=== PATIENT | male | born 1960 | race Caucasian/White ===

== ENCOUNTER 2025-07-25 20:01 | Observation (INO) ==
--- NOTE | 2025-07-25 20:22 | Emergency Department Note ---
Impression & Plan Nausea & vomiting, Elevated troponin, GERD (gastroesophageal reflux disease) ED Provider Note NAME: FINESSE MIN AGE: 64 SEX: M : 1960 ARRIVES VIA: Walk-In INFORMANT: Patient ED PROVIDER(S): Reza Rhodes MD CHIEF COMPLAINT: Nausea vomiting, referred. PLAN: Disposition: Admit MEDICAL DECISION MAKING: The patient is a pleasant 64-year-old gentleman with a past medical history of acid reflux who presents to the emergency department via walk-in clinic by his partner for evaluation of nausea and vomiting and burping that flared today where he was seen by his PCP office and referred to emergency department for concern for dehydration. Patient reports being seen for acid reflux this past summer in February and was prescribed a medication but reports he had gone to [facility] twice to have it filled but reports that they did not have it. He reports he did not reach out to his doctor to see why the prescription did not go through. Otherwise he reports that he has had no issues since February. He denies any diarrhea or constipation. Denies chest pain, cough, congestion, or fevers. On evaluation the patient is no acute distress, afebrile blood pressure in the 180s/90s and vital signs otherwise stable. Appears clinically dry. Abdomen is nontender. EKG without overt acute ischemia. CXR is suggestive of bronchitis. WBC, H/H and platelets within normal limits. Chemistry without metabolic acidosis. Electrolytes LFTs unremarkable. Initial high sensitivity troponin 23, nonspecific with repeat pending. Lipase is not elevated. CT of the abdomen pelvis was completed with finalized radiology report pending. Patient did report feeling some improvement after IV hydration, IV famotidine and Zofran. He did report some continuation of belching. Repeat HS did rise to 40 and while nonspecific patient does agree with plan for admission for further assessment. Case was discussed with Dr. Minor, [facility] hospitalist who will evaluate the patient for admission. CT of the abdomen pelvis report was finalized and demonstrates fecal and gaseous colonic distention which may suggest sterile coral colitis. Otherwise, stable findings. Further management per admitting team. Triage Nursing notes reviewed and agree them. Prior/external medical records reviewed Vital Signs: reviewed Differential diagnosis: Gastroenteritis, food borne illness, infections, appendicitis, diverticulitis, inflammatory bowel disease, obstruction, GI bleed, biliary pathology, volvulus, as well as other pathologies. ER treatment provided: See below. Diagnostics interpreted by me: ECG: Sinus rhythm with PACs, 73 bpm, incomplete right bundle branch block, no overt ST elevation or depression, QTc 434, QRS 96. Cardiac Monitoring: An order for continuous cardiac monitoring was placed and demonstrated sinus rhythm, PACs, 73 bpm. Laboratory studies: See below Imaging studies: See below Consultation(s): Case was discussed with Dr. Minor, [facility] hospitalist who will evaluate the patient for admission. HPI: Per MDM. ROS: See above HPI for pertinent positives & negatives. A total of 10 systems reviewed and were otherwise negative. VITALS:See Below PHYSICAL EXAMINATION: GENERAL: Awake, alert, in no distress HENT: Normocephalic, atraumatic. Oropharynx with dry mucous membranes and otherwise unremarkable. EYES: Normal conjunctiva. Sclera non-icteric. NECK: Supple. No nuchal rigidity. FROM. No JVD. RESPIRATORY: Clear to auscultation. CARDIAC: Regular rate, normal rhythm. Extremities warm and well perfused. Pulses equal. ABDOMEN: Soft, non-distended. No tenderness to palpation. No rebound or guarding. No masses. MUSCULOSKELETAL: Chest examination reveals no tenderness. The back is symmetrical on inspection without obvious abnormality. There is no CVA tenderness to palpation. No joint edema. LOWER EXTREMITIES: Calves are equal size bilaterally and non-tender. No edema. No discoloration. NEURO: Normal sensorium. No sensory or motor deficits noted. SKIN: No rash or jaundice noted. Reza Rhodes MD Past Med/Surg History Problem List (Updated 07/26/25 @ 14:32 by Reza Rhodes MD) Asymptomatic hypertensive urgency GERD (gastroesophageal reflux disease) (Acute) Elevated troponin (Acute) Nausea & vomiting (Acute) Abdominal pain (Acute) Vomiting and diarrhea (Acute) Social History Smoking Status: Never smoker Hx Alcohol Use: Yes Alcohol type: wine Hx Substance Use: Yes Preferred Language: Georgian 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 Ability: Effective [employer] Required: No Beliefs That Will Affect Care: None Current Living Situation: Alone Other Information That Helps Us Care for You: No Feels Safe at Home: Yes Safety Concerns: Feels Safe At This Time Assistive Devices: None Allergies Allergies Allergy/AdvReac Type Severity Reaction Status Date / Time No Known Allergies Allergy Verified 07/25/25 21:48 Home Meds Home Medications Medication Instructions Recorded Confirmed No Known Home Medications 07/25/25 07/25/25 Results & Data (ED) Vital Signs Vital Signs - 24 hr 07/25/25 20:03 07/25/25 20:45 07/25/25 20:45 Temperature 36.8 C Temperature Source Temporal Artery Scan Pulse Rate 86 88 105 H Pulse Rate [Right Finger] Pulse Rate from SpO2 Sensor Pulse Rhythm [Right Finger] Pulse Strength [Right Finger] Respiratory Rate 18 19 Respiratory Effort / Characteristics Non-Labored Spontaneous Respiratory Depth Normal Blood Pressure 180/97 H 178/82 H Blood Pressure [Left Arm] Blood Pressure Mean 124 114 Blood Pressure Mean [Left Arm] Blood Pressure Position [Left Arm] Pulse Oximetry 94 98 Oxygen Delivery Method Room Air Room Air Sepsis Recent Fever Within 48 Hours No Sepsis New/Unexplained Change in Mental Status No Sepsis Action Taken by Nursing No Action Required 07/25/25 21:00 07/25/25 21:30 07/25/25 22:21 Temperature Temperature Source Pulse Rate 82 89 83 Pulse Rate [Right Finger] Pulse Rate from SpO2 Sensor 84 90 85 Pulse Rhythm [Right Finger] Pulse Strength [Right Finger] Respiratory Rate 23 24 22 Respiratory Effort / Characteristics Respiratory Depth Blood Pressure 151/73 H 151/75 H 156/84 H Blood Pressure [Left Arm] Blood Pressure Mean 99 100 108 Blood Pressure Mean [Left Arm] Blood Pressure Position [Left Arm] Pulse Oximetry 90 91 95 Oxygen Delivery Method Room Air Room Air Room Air Sepsis Recent Fever Within 48 Hours Sepsis New/Unexplained Change in Mental Status Sepsis Action Taken by Nursing 07/25/25 22:30 07/25/25 23:00 07/26/25 00:00 Temperature Temperature Source Pulse Rate 82 85 Pulse Rate [Right Finger] 78 Pulse Rate from SpO2 Sensor 84 82 Pulse Rhythm [Right Finger] Regular Pulse Strength [Right Finger] Normal Respiratory Rate 12 24 16 Respiratory Effort / Characteristics Non-Labored Spontaneous Respiratory Depth Normal Blood Pressure 166/92 H 167/95 H Blood Pressure [Left Arm] 158/74 H Blood Pressure Mean 116 119 Blood Pressure Mean [Left Arm] 102 Blood Pressure Position [Left Arm] Lying Pulse Oximetry 96 97 98 Oxygen Delivery Method Room Air Room Air Sepsis Recent Fever Within 48 Hours Sepsis New/Unexplained Change in Mental Status Sepsis Action Taken by Nursing 07/26/25 01:19 Temperature Temperature Source Pulse Rate 83 Pulse Rate [Right Finger] Pulse Rate from SpO2 Sensor Pulse Rhythm [Right Finger] Pulse Strength [Right Finger] Respiratory Rate Respiratory Effort / Characteristics Respiratory Depth Blood Pressure Blood Pressure [Left Arm] Blood Pressure Mean Blood Pressure Mean [Left Arm] Blood Pressure Position [Left Arm] Pulse Oximetry Oxygen Delivery Method Sepsis Recent Fever Within 48 Hours Sepsis New/Unexplained Change in Mental Status Sepsis Action Taken by Nursing Laboratory Data Attestation: I reviewed the patient's lab results. 07/26/25 04:23 07/26/25 04:23 Lab Results 07/25/25 07/25/25 07/25/25 Range/Units 20:35 21:16 22:11 WBC 8.81 (4.8-10.8) K/ul RBC 5.06 (4.70-6.10) M/uL Hgb 15.8 (14.0-18.0) g/dL Hct 43.5 (42.0-52.0) % MCV 86.0 (80.0-100.0) fL MCH 31.2 (25.0-34.0) pg MCHC 36.3 H (32.0-36.0) g/dL RDW Std Deviation 39.5 (36.4-46.3) fL RDW Coeff of Beth 12.7 (11.5-14.5) % Plt Count 263 (130-400) K/uL MPV 9.6 (9.4-12.4) fL Immature Gran % (Auto) 0.2 % Neut % (Auto) 89.6 % Lymph % (Auto) 7.6 % Grady % (Auto) 2.0 % Eos % (Auto) 0.3 % Baso % (Auto) 0.3 % Neut # (Auto) 7.88 H (1.40-6.50) K/uL Lymph # (Auto) 0.67 L (1.20-3.40) K/uL Grady # (Auto) 0.18 (0.11-0.59) K/uL Eos # (Auto) 0.03 (0.00-0.50) K/uL Baso # (Auto) 0.03 (0.00-0.20) K/uL Immature Gran # (Auto) 0.02 (0.01-0.20) K/uL PT Cancelled 11.2 INR Cancelled 1.1 Sodium 139 (136-145) mmol/L Potassium 3.7 (3.5-5.1) mmol/L Chloride 105 (98-107) mmol/L Carbon Dioxide 22 (21-32) mmol/L Anion Gap 12 H (3-11) BUN 15 (6-23) mg/dl Creatinine 0.89 (0.6-1.4) mg/dl Est Cr Clr Drug Dosing 83.9 ml/min eGFR 95.70 BUN/Creatinine Ratio 16.9 (10-20) Glucose 155 H (70-99(Fasting)) mg/dl Calcium 9.4 (8.6-10.3) mg/dl Total Bilirubin 0.9 (0.2-1.0) mg/dl AST 19 (13-39) U/L ALT 10 (7-52) U/L Alkaline Phosphatase 86 (34-104) U/L Troponin I High Sens 23.3 H 40.3 H D (0-20) pg/ml Total Protein 7.7 (6.0-8.3) gm/dl Albumin 4.4 (3.4-5.0) gm/dl Globulin 3.3 (2.5-4.0) gm/dl Albumin/Globulin Ratio 1.3 (0.9-2) Lipase 7 L (11-82) U/L Administered Medications Docusate Sodium (Docusate Sodium 100 Mg Cap) 100 mg PO BID [facility] Stop: 08/25/25 08:59 Last Admin: 07/26/25 10:28 Dose: Not Given Documented By: CF Enoxaparin Sodium (Enoxaparin Inj 40 Mg/0.4 Ml Syr) 40 mg SQ [facility] [place] Stop: 08/25/25 08:59 Last Admin: 07/26/25 10:00 Dose: 40 mg Documented By: CF Lactated Ringer's (Lr) 1,000 mls @ 60 mls/hr IV .[id number] ONE Stop: 07/26/25 18:36 Last Admin: 07/26/25 04:19 Dose: 60 mls/hr Documented By: SJM Losartan Potassium (Losartan Potassium 25 Mg Tab) 25 mg PO QAM [facility] Stop: 08/25/25 01:54 Last Admin: 07/26/25 02:59 Dose: 25 mg Documented By: [facility] Polyethylene Glycol (Polyethylene (Miralax) 17 Gm Pack) 17 gm PO DAILY JOSE ELIAS Stop: 08/25/25 08:59 Last Admin: 07/26/25 10:28 Dose: Not Given Documented By: CF Discontinued Medications Sodium Chloride (Nss) 1,000 mls @ 999 mls/hr IV .Q1H1M ONE Stop: 07/25/25 21:20 Last Infusion: 07/25/25 21:43 Dose: Infused Documented By: Admin: 07/25/25 20:39 Dose: 999 mls/hr Documented By: JOSTIN Famotidine (Pepcid 20mg Iv Push) 20 mg in 5 mls @ 2.5 mls/min IV NOW STA Stop: 07/25/25 20:45 Last Admin: 07/25/25 21:06 Dose: 2.5 mls/min Documented By: JOSTIN Ioversol (Optiray 320 100ml) 94 ml IV ONCE ONE Stop: 07/25/25 21:35 Last Admin: 07/26/25 05:25 Dose: Not Given Documented By: KEL Ondansetron HCl (Ondansetron Inj 2 Mg/Ml 2 Ml Vial) 4 mg IV NOW STA Stop: 07/25/25 20:45 Last Admin: 07/25/25 21:06 Dose: 4 mg Documented By: JOSTIN Imaging Data Radiologist's Impression: Abdomen/Pelvis CT 07/25/25 20:44 EXAM: CT abd pelvis IV con only CLINICAL HISTORY: abdominal pain, n/v TECHNIQUE: Contiguous axial images were obtained from the level of the diaphragm to the pubic symphysis with intravenous contrast. Coronal and sagittal reconstructions were likewise performed and indicated to increase the sensitivity for detecting clinically relevant pathology. If IV contrast material had not been administered, the likelihood of detecting abnormalities relevant to the patient's condition would have been substantially decreased. CT scan was performed according to ALARA (as low as reasonably achievable). 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 FINDINGS: The visualized lung bases are clear. The liver is normal in size and attenuation. No focal liver lesions are seen. There is no intra or extrahepatic biliary ductal dilatation. Hepatic vasculature is patent. The gallbladder is present. The spleen, pancreas, and adrenal glands are unremarkable. The kidneys are normal in size and attenuation. There is no hydronephrosis or perinephric fat stranding. No renal calculi or renal masses are identified. The ureters are normal in caliber and no ureteral calculi are seen. The bladder is normal in contour. Enlarged prostate. No evidence of bowel obstruction is identified. No imaging evidence of appendicitis. Abdominal and pelvic vasculature is patent. No adenopathy or fluid collections are seen. No aggressive appearing osseous lesions are identified. Colonic fecal and gaseous distension with mild wall thickening of rectum. Could be suggestive of stercoral colitis. Advised clinical correlation. New finding. Multiple small uncomplicated sigmoid colonic diverticulosis Diffuse atherosclerotic calcification is noted involving aorta iliac arteries. IMPRESSION: Enlarged prostate.-stable. Colonic fecal and gaseous distension with mild wall thickening of rectum. Could be suggestive of stercoral colitis. Advised clinical correlation. New finding. Multiple small uncomplicated sigmoid colonic diverticulosis-stable. Diffuse atherosclerotic calcification is noted involving aorta iliac arteries.s-stable. Electronically signed by Leland Hernandes 07-26-2025 03:27 AM Discharge Plan Visit Data Chief Complaint: Illness Stated Complaint: ACID REFLUX, DEHYDRATION ED Provider: Reza Rhodes Discharge Problem: Nausea & vomiting, Elevated troponin, GERD (gastroesophageal reflux disease) Patient Disposition: Admitted As Inpatient Condition: Fair Discharge Instructions Interventions: ED Discharge Assessment Last Done: 07/26/25 03:41 Discharge Problem: Nausea & vomiting Qualifiers: Vomiting type: unspecified Qualified Code(s): R11.2 - Nausea with vomiting, unspecified GERD (gastroesophageal reflux disease) Qualifiers: Esophagitis presence: esophagitis presence not specified Qualified Code(s): K 21.9 - Gastro-esophageal reflux disease without esophagitis
[2025-07-25] MEDS: SODIUM CHLORIDE 0.9% 1,000 ML IV ONE (20:39)
[2025-07-25 20:44] LABS: Hematocrit (blood only) 43.5 % (42.0-52.0); Hemoglobin 15.8 g/dL (14.0-18.0); Immature Granulocytes # (auto) 0.02 K/uL (0.01-0.20); Immature Granulocytes % (auto) 0.2 %; Mean Corpuscular Hemoglobin 31.2 pg (25.0-34.0); Mean Corpuscular Volume 86.0 fL (80.0-100.0); Platelet Count 263 K/uL (130-400); RDW Standard Deviation 39.5 fL (36.4-46.3); Red Blood Count 5.06 M/uL (4.70-6.10); White Blood Count 8.81 K/ul (4.8-10.8)
[2025-07-25 21:04] LABS: Alanine Aminotransferase 10.0 U/L (7-52); Albumin Globulin Ratio 1.3 (0.9-2); Albumin Level 4.4 gm/dl (3.4-5.0); Alkaline Phosphatase 86.0 U/L (34-104); Anion Gap 12.0 (3-11); Bilirubin,Total 0.9 mg/dl (0.2-1.0); Blood Urea Nitrogen 15.0 mg/dl (6-23); Calcium 9.4 mg/dl (8.6-10.3); Carbon Dioxide 22.0 mmol/L (21-32); Chloride 105.0 mmol/L (98-107); Creatinine Clr Calc Pharmacy 83.9 ml/min; Globulin 3.3 gm/dl (2.5-4.0); Glucose 155.0 mg/dl (70-99(Fasting)); Lipase 7.0 U/L (11-82); Potassium 3.7 mmol/L (3.5-5.1); Sodium 139.0 mmol/L (136-145); Total Protein 7.7 gm/dl (6.0-8.3)
[2025-07-25] MEDS: ONDANSETRON INJ 2 MG/ML 2 ML VIAL IV STA (21:06)
[2025-07-25] MEDS: FAMOTIDINE 20MG IV PUSH 20 MG/5 ML SYR IV STA (21:06)
[2025-07-25 22:10] LABS: INR 1.1 (0.9-1.1); Prothrombin Time 11.2 Seconds (9.0-12.0)
--- NOTE | 2025-07-25 22:55 | XRay Report ---
Exam(s): XR CXR 1 VIEW EXAM: XR Chest, 1 View CLINICAL HISTORY: Reason for exam: Chest pain, nonspecific. TECHNIQUE: Frontal view of the chest. COMPARISON: Prior chest x-ray from January 25, 2016. FINDINGS: Lungs: Mild to moderate peribronchial thickening of the central bronchi. Increased insertional opacities in the lower lobes. No consolidation. Pleural space: Unremarkable. No pneumothorax. Heart: Unremarkable. No cardiomegaly. Mediastinum: Unremarkable. Normal mediastinal contour. Bones/joints: Unremarkable. No acute fracture. IMPRESSION: Bronchitis, which may be of infectious or inflammatory etiologies. No consolidation or pleural effusion. Electronically signed by: Franca Ku MD 07/25/25 22:54 PM
--- NOTE | 2025-07-26 01:51 | History & Physical Report ---
Date of Service July 26, 2025 Assessment & Plan (1) Asymptomatic hypertensive urgency: Plan: Assessment and plan below following discussion of case with ED provider and reviewing patient history/pertinent normal/abnormal diagnostic test results. Hypertensive urgency Secondary to stomach upset/foodborne illness Patient nontoxic. Patient currently comfortable Troponin elevation secondary to above GERD, intermittent PPI use at home. Hyperglycemia rule out DM OBS Admit to PCU Initiate losartan for BP control Follow troponin TTE if with progression Check hemoglobin A1c DVT prophylaxis. Lovenox subcu Full code Text document was generated using [employer] voice recognition software. It may contain grammatical or spelling errors. Kindly contact undersigned for clarification of any documentation item in question. History of Present Illness Chief Complaint: Nausea, vomiting, abdominal pain inside Primary Care Provider: Torin Hubbard PA-C History obtained from patient and records. Medical history significant for GERD. One day history of achy abdominal pain "inside" followed by nausea, emesis, burping. Good bowel movement. Denies constipation/diarrhea. Denies chest pain, SOB, cough symptoms. No unusual weight loss. Denies headache symptoms. Patient attributes symptoms to consumption of a lemon pastry and scrapple yesterday morning. Patient thinks he may have had a similar episode last year which led to confinement at [facility]. Normal cardiac catheterization during confinements as per patient. Patient currently comfortable. SBP 180s upon arrival at the ER. 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 Allergies Allergy/AdvReac Type Severity Reaction Status Date / Time No Known Allergies Allergy Verified 07/25/25 21:48 Home Medications Medication Instructions Recorded Confirmed Type No Known Home Medications 07/25/25 07/25/25 History Past Med/Surg History Problem List (Updated 07/26/25 @ 08:54 by Jose Minor MD) Asymptomatic hypertensive urgency GERD (gastroesophageal reflux disease) (Acute) Elevated troponin (Acute) Nausea & vomiting (Acute) Abdominal pain (Acute) Vomiting and diarrhea (Acute) Social History Smoking Status: Never smoker Hx Alcohol Use: Yes Alcohol type: wine Hx Substance Use: Yes Preferred Language: Fijian 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 Ability: Effective 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 Beliefs That Will Affect Care: None Current Living Situation: Alone Other Information That Helps Us Care for You: No Feels Safe at Home: Yes Safety Concerns: Feels Safe At This Time Assistive Devices: None Review of Systems Review of Systems: As per HPI, all other systems reviewed and negative Physical Exam Physical Exam: GENERAL: Comfortable, pleasant, slightly anxious, no respiratory distress SKIN: Normal color, warm HEENT: [place] palpebral conjunctivae, no ptosis, dry buccal mucosa NECK : Supple, no tenderness CHEST : CTA, no tenderness HEART : RRR, no obvious murmurs ABDOMEN: Some distention, nontender EXTREMITIES : No LE swelling/tenderness, palpable pulses, no other conspicuous deformities noted NEUROLOGIC : Coherent, no facial asymmetry, no other gross focality Results & Data Results & Data Vital Signs (Past 12 Hours) Vital Signs Temp Pulse Resp BP Pulse Ox O2 Del Method 07/26/25 01:19 83 07/25/25 23:00 85 24 167/95 H 97 Room Air 07/25/25 22:30 82 12 166/92 H 96 Room Air 07/25/25 22:21 83 22 156/84 H 95 Room Air 07/25/25 21:30 89 24 151/75 H 91 Room Air 07/25/25 21:00 82 23 151/73 H 90 Room Air 07/25/25 20:45 105 H 19 178/82 H 98 Room Air 07/25/25 20:45 88 07/25/25 20:03 36.8 C 86 18 180/97 H 94 Room Air Laboratory Results Laboratory Results WBC 8.81 K/ul (4.8-10.8) 07/25/25 20:35 RBC 5.06 M/uL (4.70-6.10) 07/25/25 20:35 Hgb 15.8 g/dL (14.0-18.0) 07/25/25 20:35 Hct 43.5 % (42.0-52.0) 07/25/25 20:35 MCV 86.0 fL (80.0-100.0) 07/25/25 20:35 MCH 31.2 pg (25.0-34.0) 07/25/25 20:35 MCHC 36.3 g/dL (32.0-36.0) H 07/25/25 20:35 RDW Std Deviation 39.5 fL (36.4-46.3) 07/25/25 20:35 RDW Coeff of Beth 12.7 % (11.5-14.5) 07/25/25 20:35 Plt Count 263 K/uL (130-400) 07/25/25 20:35 MPV 9.6 fL (9.4-12.4) 07/25/25 20:35 Immature Gran % (Auto) 0.2 % 07/25/25 20:35 Neut % (Auto) 89.6 % 07/25/25 20:35 Lymph % (Auto) 7.6 % 07/25/25 20:35 Ada % (Auto) 2.0 % 07/25/25 20:35 Eos % (Auto) 0.3 % 07/25/25 20:35 Baso % (Auto) 0.3 % 07/25/25 20:35 Neut # (Auto) 7.88 K/uL (1.40-6.50) H 07/25/25 20:35 Lymph # (Auto) 0.67 K/uL (1.20-3.40) L 07/25/25 20:35 Ada # (Auto) 0.18 K/uL (0.11-0.59) 07/25/25 20:35 Eos # (Auto) 0.03 K/uL (0.00-0.50) 07/25/25 20:35 Baso # (Auto) 0.03 K/uL (0.00-0.20) 07/25/25 20:35 Immature Gran # (Auto) 0.02 K/uL (0.01-0.20) 07/25/25 20:35 PT 11.2 Seconds (9.0-12.0) 07/25/25 21:16 INR 1.1 (0.9-1.1) 07/25/25 21:16 Sodium 139 mmol/L (136-145) 07/25/25 20:35 Potassium 3.7 mmol/L (3.5-5.1) 07/25/25 20:35 Chloride 105 mmol/L (98-107) 07/25/25 20:35 Carbon Dioxide 22 mmol/L (21-32) 07/25/25 20:35 Anion Gap 12 (3-11) H 07/25/25 20:35 BUN 15 mg/dl (6-23) 07/25/25 20:35 Creatinine 0.89 mg/dl (0.6-1.4) 07/25/25 20:35 Est Cr Clr Drug Dosing 83.9 ml/min 07/25/25 20:35 eGFR 95.70 07/25/25 20:35 BUN/Creatinine Ratio 16.9 (10-20) 07/25/25 20:35 Glucose 155 mg/dl (70-99(Fasting)) H 07/25/25 20:35 Calcium 9.4 mg/dl (8.6-10.3) 07/25/25 20:35 Total Bilirubin 0.9 mg/dl (0.2-1.0) 07/25/25 20:35 AST 19 U/L (13-39) 07/25/25 20:35 ALT 10 U/L (7-52) 07/25/25 20:35 Alkaline Phosphatase 86 U/L (34-104) 07/25/25 20:35 Troponin I High Sens 40.3 pg/ml (0-20) H D 07/25/25 22:11 Total Protein 7.7 gm/dl (6.0-8.3) 07/25/25 20:35 Albumin 4.4 gm/dl (3.4-5.0) 07/25/25 20:35 Globulin 3.3 gm/dl (2.5-4.0) 07/25/25 20:35 Albumin/Globulin Ratio 1.3 (0.9-2) 07/25/25 20:35 Lipase 7 U/L (11-82) L 07/25/25 20:35 Impressions Chest X-Ray 07/25/25 20:20 Exam(s): XR CXR 1 VIEW EXAM: XR Chest, 1 View CLINICAL HISTORY: Reason for exam: Chest pain, nonspecific. TECHNIQUE: Frontal view of the chest. COMPARISON: Prior chest x-ray from January 25, 2016. FINDINGS: Lungs: Mild to moderate peribronchial thickening of the central bronchi. Increased insertional opacities in the lower lobes. No consolidation. Pleural space: Unremarkable. No pneumothorax. Heart: Unremarkable. No cardiomegaly. Mediastinum: Unremarkable. Normal mediastinal contour. Bones/joints: Unremarkable. No acute fracture. IMPRESSION: Bronchitis, which may be of infectious or inflammatory etiologies. No consolidation or pleural effusion. Electronically signed by: Franca Ku MD 07/25/25 22:[address] abdomen pelvis: Enlarged prostate.-stable. Colonic fecal and gaseous distension with mild wall thickening of rectum. Could be suggestive of stercoral colitis. Advised clinical correlation. New finding. Multiple small uncomplicated sigmoid colonic diverticulosis-stable. Diffuse atherosclerotic calcification is noted involving aorta iliac arteries.s-stable. Diagnostic Findings EKG as per my interpretation :Rate 75, NSR, normal axis, incomplete RBBB, no ischemia
[2025-07-26] MEDS ORDERED: PROMETHAZINE 6.25 MG/50.25 ML BAG IV PRN (01:57)
[2025-07-26] MEDS ORDERED: ACETAMINOPHEN 325 MG TAB PO PRN (01:57)
[2025-07-26] MEDS: LOSARTAN POTASSIUM 25 MG TAB PO SCH (02:59)
--- NOTE | 2025-07-26 03:27 | CT Scan Report ---
EXAM: CT abd pelvis IV con only CLINICAL HISTORY: abdominal pain, n/v TECHNIQUE: Contiguous axial images were obtained from the level of the diaphragm to the pubic symphysis with intravenous contrast. Coronal and sagittal reconstructions were likewise performed and indicated to increase the sensitivity for detecting clinically relevant pathology. If IV contrast material had not been administered, the likelihood of detecting abnormalities relevant to the patient's condition would have been substantially decreased. CT scan was performed according to ALARA (as low as reasonably achievable). 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 The liver is normal in size and attenuation. No focal liver lesions are seen. There is no intra or extrahepatic biliary ductal dilatation. Hepatic vasculature is patent. The gallbladder is present. The spleen, pancreas, and adrenal glands are unremarkable. The kidneys are normal in size and attenuation. There is no hydronephrosis or perinephric fat stranding. No renal calculi or renal masses are identified. The ureters are normal in caliber and no ureteral calculi are seen. The bladder is normal in contour. Enlarged prostate. No evidence of bowel obstruction is identified. No imaging evidence of appendicitis. Abdominal and pelvic vasculature is patent. No adenopathy or fluid collections are seen. No aggressive appearing osseous lesions are identified. Colonic fecal and gaseous distension with mild wall thickening of rectum. Could be suggestive of stercoral colitis. Advised clinical correlation. New finding. Multiple small uncomplicated sigmoid colonic diverticulosis Diffuse atherosclerotic calcification is noted involving aorta iliac arteries. IMPRESSION: Enlarged prostate.-stable. Colonic fecal and gaseous distension with mild wall thickening of rectum. Could be suggestive of stercoral colitis. Advised clinical correlation. New finding. Multiple small uncomplicated sigmoid colonic diverticulosis-stable. Diffuse atherosclerotic calcification is noted involving aorta iliac arteries.s-stable. Electronically signed by Leland Hernandes 07-26-2025 03:27 AM
[2025-07-26] MEDS: LACTATED RINGER'S 1,000 ML IV ONE (04:19)
[2025-07-26 04:35] LABS: Hematocrit (blood only) 37.9 % (42.0-52.0); Hemoglobin 13.6 g/dL (14.0-18.0); Immature Granulocytes # (auto) 0.04 K/uL (0.01-0.20); Immature Granulocytes % (auto) 0.5 %; Mean Corpuscular Hemoglobin 31.1 pg (25.0-34.0); Mean Corpuscular Volume 86.7 fL (80.0-100.0); Platelet Count 229 K/uL (130-400); RDW Standard Deviation 40.8 fL (36.4-46.3); Red Blood Count 4.37 M/uL (4.70-6.10); White Blood Count 8.45 K/ul (4.8-10.8)
[2025-07-26] MEDS ORDERED: PNEUMOCOCCAL VACCINE (PCV20) 20-VAL CONJ-DIP CRM/PF 0.5 ML SYR IM ONE (04:35)
[2025-07-26] MEDS ORDERED: INFLUENZA VACC TS2025-26(6m+)/PF (IIV3) 0.5mL Syr IM ONE (04:35)
[2025-07-26 04:52] LABS: Anion Gap 10.0 (3-11); Blood Urea Nitrogen 13.0 mg/dl (6-23); Calcium 8.7 mg/dl (8.6-10.3); Carbon Dioxide 22.0 mmol/L (21-32); Chloride 106.0 mmol/L (98-107); Creatinine Clr Calc Pharmacy 94.5 ml/min; Glucose 125.0 mg/dl (70-99(Fasting)); Potassium 3.6 mmol/L (3.5-5.1); Sodium 138.0 mmol/L (136-145)
[2025-07-26 05:11] LABS: Partial Thromboplastin Time 25 Seconds (21-31)
[2025-07-26] MEDS: OPTIRAY 320 100ml IV ONE (05:25)
[2025-07-26 07:21] LABS: Hemoglobin A1C 5.7 % (4.5-5.6)
[2025-07-26 07:35] LABS: Chlamydia pneumoniae PCR Not Detected (NotDetected); Coronavirus 229E PCR Not Detected (NotDetected); Coronavirus CoV-2 (COVID19)PCR Not Detected (NotDetected); Coronavirus HKU1 PCR Not Detected (NotDetected); Coronavirus NL63 PCR Not Detected (NotDetected); Coronavirus OC43PCR Not Detected (NotDetected); Human Metapneumovirus PCR Not Detected (NotDetected); Parainfluenza Virus 1 PCR Not Detected (NotDetected); Parainfluenza Virus 2 PCR Not Detected (NotDetected); Parainfluenza Virus 3 PCR Not Detected (NotDetected); Parainfluenza Virus 4 PCR Not Detected (NotDetected); Respiratory Syncytial VirusPCR Not Detected (NotDetected); Rhinovirus/Enterovirus PCR Not Detected (NotDetected)
[2025-07-26] MEDS: ENOXAPARIN INJ 40 MG/0.4 ML SYR SQ SCH (10:00)
--- NOTE | 2025-07-26 10:03 | XCELERA ---
[id number]
[2025-07-26] MEDS: DOCUSATE SODIUM 100 MG CAP PO SCH (10:28)
[2025-07-26] MEDS: POLYETHYLENE (MIRALAX) 17 GM PACK PO SCH (10:28)
[2025-07-26 11:20] LABS: Appearance Urine Clear (Clear); Bacteria Urine Automated None Seen (None Seen); Cast Urine Automated 0-2 /lpf (0-2); Epithelial Cell Urine Auto 0-2 /hpf (0-2); Glucose Urine UA Negative (Negative); WBC Urine Automated 0-5 /hpf (0-5)
--- NOTE | 2025-07-26 11:51 | Electrocardiogram Report ---
Test Reason : Blood Pressure : */* mmHG Vent. Rate : 73 BPM Atrial Rate : 73 BPM P-R Int : 148 ms QRS Dur : 96 ms QT Int : 394 ms P-R-T Axes : 78 19 54 degrees QTcB Int : 434 ms Sinus rhythm with Premature atrial complexes Incomplete right bundle branch block Borderline ECG No previous ECGs available Confirmed by Kemal Fuller ([id number]) on 07/26/2025 11:51:27 AM Referred By: REFERRED SELF Confirmed By: Kemal Fuller
--- NOTE | 2025-07-26 13:13 | 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 Note ---
Date of Service: July 26, 2025 Patient was seen and examined at bedside. 64-year-old male with PMH of GERD presents with complaint of achy abdominal pain x 1 day followed by nausea, emesis, burping. Patient reports moving bowels okay, denies chest pain or shortness of breath or sore throat or cough or fever. Patient attributes the symptoms to consumption of a lemon pastry in the scrapple the morning prior to arrival. Patient thinks he may have had a similar episode last year which led to confinement at [facility]. Normal cardiac catheterization during confinements as per patient. He is being managed for the following: Asymptomatic hypertensive urgency Likely demand ischemia: ISO acute distress Blood pressure noted at 180/97 at presentation. Likely secondary to stomach upset/foodborne illness Troponin peaked at 119 and then down trended. Patient denies any chest pain or shortness of breath or chest heaviness. EKG with no acute ST or T changes. Echo with EF of 65 to 70%, no regional wall motion abnormalities. Left ventricular systolic function normal. Borderline concentric LVH. Continue to monitor over telemetry overnight. Repeat EKG in AM. Get lipid profile in AM. Losartan 25 mg added, titrate blood pressure medications as appropriate. Stomach upset likely secondary to foodborne illness versus GERD exacerbation: Patient nontoxic, reports improvement in his burping/regurgitation/reflux. Has intermittent PPI use at home. Will continue with Protonix daily, patient will benefit from GI evaluation as an outpatient. Prediabetes: A1c of 5.7, patient made aware, repeat A1c in 3 months. Encouraged lifestyle modification and healthy diet. DVT prophylaxis. Lovenox subcu Full code Text document was generated using 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 voice recognition software. It may contain grammatical or spelling errors. Kindly contact undersigned for clarification of any documentation item in question. For detailed information on the patient, report to today's H&P note.
--- NOTE | 2025-07-26 22:43 | 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 Note ---
Date of Service: July 26, 2025 Patient noted to be bradycardic, heart rate 40s as per RN. SBP 160s. 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
[2025-07-26] MEDS ORDERED: ATROPINE SULFATE 0.1 MG/ML 10ML SYR IV PRN (22:44)
[2025-07-26] MEDS: LOSARTAN POTASSIUM 25 MG TAB PO STA (23:01)
[2025-07-26 23:47] LABS: Magnesium 1.9 mg/dl (1.7-2.4)
[2025-07-27 00:02] LABS: Thyroid Stimulating Hormone 1.13 uIu/ml (0.300-4.500)
[2025-07-27 00:17] LABS: Lyme Screen Rflx Confirmation Positive (Negative)
[2025-07-27 00:59] LABS: Lyme Ab IgG 2nd Tier Confirm Positive (Negative); Lyme Ab IgM 2nd Tier Confirm Positive (Negative)
[2025-07-27] MEDS ORDERED: cefTRIAXone SODIUM 2,000 MG/50 ML BAG IV SCH (01:30)
[2025-07-27] MEDS: DOXYCYCLINE HYCLATE 100 MG in DEXTROSE 5% MINI-B 100 ML IV STA (01:35)
[2025-07-27 08:31] LABS: Cholesterol 151.0 mg/dl (0-200); HDL Cholesterol 37.0 mg/dl; Hematocrit (blood only) 41.4 % (42.0-52.0); Hemoglobin 14.4 g/dL (14.0-18.0); Mean Corpuscular Hemoglobin 30.6 pg (25.0-34.0); Mean Corpuscular Volume 88.1 fL (80.0-100.0); Platelet Count 224 K/uL (130-400); RDW Standard Deviation 42.0 fL (36.4-46.3); Red Blood Count 4.70 M/uL (4.70-6.10); Triglycerides 111.0 mg/dl (0-150); White Blood Count 7.30 K/ul (4.8-10.8)
[2025-07-27 08:39] LABS: Albumin Globulin Ratio 1.7 (0.9-2); Albumin Level 3.9 gm/dl (3.4-5.0); Alkaline Phosphatase 65.0 U/L (34-104); Anion Gap 7.0 (3-11); Bilirubin,Total 1.0 mg/dl (0.2-1.0); Blood Urea Nitrogen 15.0 mg/dl (6-23); Calcium 9.0 mg/dl (8.6-10.3); Creatinine Clr Calc Pharmacy 95.7 ml/min; Globulin 2.3 gm/dl (2.5-4.0); Potassium 4.3 mmol/L (3.5-5.1); Sodium 139.0 mmol/L (136-145); Total Protein 6.2 gm/dl (6.0-8.3)
[2025-07-27 08:48] LABS: Alanine Aminotransferase 8.0 U/L (7-52); Carbon Dioxide 27.0 mmol/L (21-32); Chloride 105.0 mmol/L (98-107); Glucose 89.0 mg/dl (70-99(Fasting))
[2025-07-27] MEDS: LOSARTAN POTASSIUM 50 MG TAB PO SCH (09:31)
--- NOTE | 2025-07-27 10:50 | Discharge Summary ---
Date of Service July 27, 2025 Admission HPI Per Admitting Provider History obtained from patient and records. Medical history significant for GERD. One day history of achy abdominal pain "inside" followed by nausea, emesis, burping. Good bowel movement. Denies constipation/diarrhea. Denies chest pain, SOB, cough symptoms. No unusual weight loss. Denies headache symptoms. Patient attributes symptoms to consumption of a lemon pastry and scrapple yesterday morning. Patient thinks he may have had a similar episode last year which led to confinement at [facility]. Normal cardiac catheterization during confinements as per patient. Patient currently comfortable. SBP 180s upon arrival at the ER. 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 Admission Exam Per Admitting Provider GENERAL: Comfortable, pleasant, slightly anxious, no respiratory distress SKIN: Normal color, warm HEENT: [place] palpebral conjunctivae, no ptosis, dry buccal mucosa NECK : Supple, no tenderness CHEST : CTA, no tenderness HEART : RRR, no obvious murmurs ABDOMEN: Some distention, nontender EXTREMITIES : No LE swelling/tenderness, palpable pulses, no other conspicuous deformities noted NEUROLOGIC : Coherent, no facial asymmetry, no other gross focality Principal Diagnosis Asymptomatic hypertensive urgency Likely demand ischemia Lyme disease Likely GERD exacerbation Prediabetes Discharge Exam GENERAL: Comfortable, pleasant, NAD, no respiratory distress SKIN: Normal color, warm HEENT: [place] palpebral conjunctivae, no ptosis, moist buccal mucosa NECK : Supple, no tenderness CHEST : CTA, no tenderness HEART : RRR, no obvious murmurs ABDOMEN: No distention, nontender EXTREMITIES : No LE swelling/tenderness, palpable pulses, no other conspicuous deformities noted NEUROLOGIC : Coherent, no facial asymmetry, no other gross focality Discharge Data Allergies Allergy/AdvReac Type Severity Reaction Status Date / Time No Known Allergies Allergy Verified 07/25/25 21:48 Consultations 07/26/25 01:29 ED Decision to Admit Stat Ordered Studies 07/25/25 20:44 CT abd pelvis IV con only Stat Hospital Course (1) Asymptomatic hypertensive urgency: Plan 64-year-old male with PMH of GERD presents with complaint of achy abdominal pain x 1 day followed by nausea, emesis, burping. Patient reports moving bowels okay, denies chest pain or shortness of breath or sore throat or cough or fever. Patient attributes the symptoms to consumption of a lemon pastry in the scrapple the morning prior to arrival. Patient thinks he may have had a similar episode last year which led to confinement at [facility]. Normal cardiac catheterization during confinements as per patient. He is being managed for the following: Asymptomatic hypertensive urgency Likely demand ischemia: ISO acute distress Blood pressure noted at 180/97 at presentation. Likely secondary to stomach upset/foodborne illness Troponin peaked at 119 and then down trended. Patient denies any chest pain or shortness of breath or chest heaviness. EKG with no acute ST or T changes. Echo with EF of 65 to 70%, no regional wall motion abnormalities. Left ventricular systolic function normal. Borderline concentric LVH. Losartan uptitrated to 50 mg, titrate blood pressure medications as appropriate during f/u w/ PCP, pt has been explained. 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 Lyme IgM and IgG are positive. Concern for lyme carditis but DC interval 140, no heart block in EKG, no chest pain or sob and heart rate has been stable during wake hours and with activity, hence likely not lyme carditis. Briefly discussed the case w/ cardio and lyme carditis is likely not concern. Stomach upset likely secondary to foodborne illness versus GERD exacerbation: Patient nontoxic, reports improvement in his burping/regurgitation/reflux. Has intermittent PPI use at home. Will continue with Protonix daily, patient will benefit from GI evaluation as an outpatient. Prediabetes: A1c of 5.7, patient made aware, repeat A1c in 3 months. Encouraged lifestyle modification and healthy diet. DVT prophylaxis. Lovenox subcu Full code Text document was generated using [employer] voice recognition software. It may contain grammatical or spelling errors. Kindly contact undersigned for clarification of any documentation item in question. Follow-up with your primary care physician within a week time and likely you will need labs CBC/CMP/magnesium/phosphorus. You are diagnosed with Lyme disease, you will be discharged on doxycycline, complete the course as prescribed. While on doxycycline, utilize sunscreen lotion when out in the sun to avoid photosensitivity reaction. Take with at least 8 ounces of water and stay upright for at least half an hour after taking the medication. You are noted to have high blood pressure, you are being started on blood pressure medication, recommend that you continue to measure your blood pressure twice a day to maintain a log to take to your primary care physician for ongoing management/adjustment of your blood pressure medications. You will likely benefit from outpatient sleep study, coordinate with your PCP office to set up the test. You will be discharged on Protonix for possible GERD exacerbation, you will benefit from GI doctor evaluation as an outpatient. Coordinate with your PCP office to set up the referral. As discussed at the bedside, you have been diagnosed with prediabetes. Encourage lifestyle modification and healthy diet intake. Recommend that you continue to follow-up with the PCP for long-term monitoring, you will likely need repeat A1c in 3 months, coordinate with your PCP office to set up the test. Take your medications as prescribed. Please make sure that you are able to get your medications today by calling your pharmacy before you leave the hospital so that your treatment continuity is not broken. Home Health Attestation I certify that this patient is under my care and that I, or a physicians payroll assistant working with me, had a face to-face encounter that meets the home health [id number] encounter requirements with this patient. The encounter with the patient was in whole, or in part, for the following medical condition, which is the primary reason for home health care (list medical condition): I certify that, based on my findings, the following services are medically necessary home health services: My clinical findings support the need for the above services because: Further, I certify that my clinical findings support that this patient is homebound (i.e. absences from home require considerable and taxing effort and are for medical reasons or hoahaoism services or infrequently or of short duration when for other reasons) because: Certification for Home Health Services: Based on the above findings, I certify that this patient is confined to the home and needs intermittent long-term care, physical therapy and/or speech therapy or continues to need occupational therapy. The patient is under my care, and I have initiated the establishment of the plan of care. This patient will be followed by a physician who will periodically review the plan of care. Total Time Total Time Spent Total Time Spent (In Minutes): 45 Discharge Plan Discharge Items Patient Disposition: Home - Self-Care Reason For Visit: LYME CARDITIS Discharge Diagnosis: Asymptomatic hypertensive urgency Likely demand ischemia Lyme disease Likely GERD exacerbation Prediabetes Condition on Discharge: Fair Activity: Resume your previous activity Non-emergency contact: Primary Care Provider Call non-emergency contact if: you have any medication questions and your symptoms worsen Follow-up/Referrals: Torin Hubbard PA-C [Primary Care Provider] - Diet: Regular Addtl Attending Provider Instructions: Follow-up with your primary care physician within a week time and likely you will need labs CBC/CMP/magnesium/phosphorus. You are diagnosed with Lyme disease, you will be discharged on doxycycline, complete the course as prescribed. While on doxycycline, utilize sunscreen lotion when out in the sun to avoid photosensitivity reaction. Take with at least 8 ounces of water and stay upright for at least half an hour after taking the medication. You are noted to have high blood pressure, you are being started on blood pressure medication, recommend that you continue to measure your blood pressure twice a day to maintain a log to take to your primary care physician for ongoing management/adjustment of your blood pressure medications. You will likely benefit from outpatient sleep study, coordinate with your PCP office to set up the test. You will be discharged on Protonix for possible GERD exacerbation, you will benefit from GI doctor evaluation as an outpatient. Coordinate with your PCP office to set up the referral. As discussed at the bedside, you have been diagnosed with prediabetes. Encourage lifestyle modification and healthy diet intake. Recommend that you continue to follow-up with the PCP for long-term monitoring, you will likely need repeat A1c in 3 months, coordinate with your PCP office to set up the test. Take your medications as prescribed. Please make sure that you are able to get your medications today by calling your pharmacy before you leave the hospital so that your treatment continuity is not broken. Pending Studies at Discharge: No Stand-Alone Forms: My [employer], Smoking Cessation Medications and DC Order Prescriptions: New losartan 50 mg Tablet 50 mg PO QAM Qty: 30 0RF doxycycline hyclate 100 mg Capsule 100 mg PO BID 14 Days Qty: 28 0RF polyethylene glycol 3350 [Miralax] 17 gram Powder In Packet 17 g PO DAILY PRN (Reason: constipation) Qty: 30 0RF pantoprazole 40 mg Tablet,Delayed Release (Dr/Ec) 40 mg PO QAM Qty: 30 0RF Discharge Orders: Discharge Order (Routine); Ordered 07/27/25 Ordered By: Sean Pearce Admission Data Admit Date/Time: 07/27/25 01:10 Attending Provider: Sean Pearce Admit Provider: Jose Minor Primary Care Provider: Torin Hubbard Other Providers: Jose Minor
--- NOTE | 2025-07-27 16:40 | Electrocardiogram Report ---
Test Reason : Blood Pressure : */* mmHG Vent. Rate : 52 BPM Atrial Rate : 52 BPM P-R Int : 140 ms QRS Dur : 98 ms QT Int : 470 ms P-R-T Axes : 67 -20 27 degrees QTcB Int : 437 ms Sinus bradycardia Otherwise normal ECG When compared with ECG of 26-Jul-2025 22:56, (unconfirmed) No significant change was found Confirmed by Kemal Fuller ([id number]) on 07/27/2025 4:40:38 PM Referred By: REFERRED SELF Confirmed By: Kemal Fuller
[2025-07-27] MEDS ORDERED: DOXYCYCLINE HYCLATE 100 MG CAP PO SCH (21:00)
--- NOTE | 2025-07-28 08:20 | Electrocardiogram Report ---
Test Reason : Blood Pressure : */* mmHG Vent. Rate : 45 BPM Atrial Rate : 45 BPM P-R Int : 146 ms QRS Dur : 98 ms QT Int : 496 ms P-R-T Axes : 67 -14 16 degrees QTcB Int : 429 ms Sinus bradycardia Otherwise normal ECG When compared with ECG of 25-Jul-2025 20:29, Premature atrial complexes are no longer Present Vent. rate has decreased by 28 bpm T wave inversion now evident in Inferior leads Confirmed by Kemal Fuller ([id number]) on 07/28/2025 8:20:04 AM Referred By: REFERRED SELF Confirmed By: Kemal Fuller
== END 2025-07-27 12:31 | disposition home or self-care (01) | DRG 305 ==
LOC: 2S 20:01 → ED 20:01 → 2S 07-26 03:41